=== PATIENT | female | born 1960 | race Caucasian/White ===

== ENCOUNTER → 2017-12-04 08:27 | Outpatient (CLI) | payer OTHER, SELFPAY ==
--- NOTE | 2017-12-04 | DI.MRI.S_ITS ---
PROCEDURE: MR SHOULDER RT WO CON INDICATIONS: CALCIFIC TENDONITIS OF RIGHT SHOULDER TECHNIQUE: Noncontrast oblique coronal T2 fast spin echo with fat saturation, oblique sagittal T1 spin echo and T2 fast spin echo with fat saturation, axial T1 spin echo and T2 fast spin echo with fat saturation through the shoulder. COMPARISON: [facility] [place], CR, XR SHOULDER 2+ VIEWS BILATERAL, 01/13/2017, 13:22. FINDINGS: Image quality: Excellent. Rotator cuff: As seen on the comparison radiograph dated 01/13/17, there is calcific tendinitis involving the junction of the supraspinatus and infraspinatus tendons. Additionally, there may be a low signal focus of hydroxyapatite deposition within the adjacent humeral head, for example image 5 series 10. There is associated supraspinatus and infraspinatus tendinopathy. There is also partial-thickness bursal surface fraying. The teres minor tendon appears intact. The subscapularis tendon appears intact. No atrophy of the rotator cuff musculature Bones and bursae: No bone marrow contusions or fractures. There is reactive marrow edema to the hydroxyapatite deposition described above. Moderate acromioclavicular joint degeneration. The acromion demonstrates conventional anatomy, without an os acromiale. Mild subacromial/subdeltoid bursal fluid is present. Capsule and soft tissues: In the absence of intra-articular contrast, the labrum and glenohumeral ligaments appear intact. The long head of the biceps tendon demonstrates normal location and morphology. The rotator interval appears normal, without fibrosis. The coracohumeral ligament is normal in thickness. IMPRESSION: Calcific tendinitis involving the junction of the supraspinatus and infraspinatus tendons of the foot and, with associated tendinopathy and low-grade bursal surface fraying. Adjacent mild subacromial/subdeltoid bursitis. Additional low signal focus within the adjacent humeral head suggestive of intraosseous hydroxyapatite deposition. There is marked adjacent marrow edema presumably reactive. Dictated by: Sylvester Washington M.D. on 12/04/2017 at 11:11 Approved by: Sylvester Washington M.D. on 12/04/2017 at 11:40
== END ==
PROVIDERS: Visit Provider Orthopaedic Surgery
DX: M75.31 Calcific tendinitis of right shoulder (principal); M75.51 Bursitis of right shoulder
CPT/HCPCS: 73221

== ENCOUNTER → 2017-12-14 13:32 | Outpatient (CLI) | payer OTHER, SELFPAY ==
--- NOTE | 2017-12-14 13:37 | DI.CT.S_ITS ---
PROCEDURE: CT UE RT WO CON INDICATIONS: TENDONITIS OF RIGHT SHOULDER TECHNIQUE: Noncontrast 1-1.5 mm thick sections acquired from the acromioclavicular joint to the inferior scapula, with coronal and sagittal reformatting. COMPARISON: [facility] [place], CR, XR SHOULDER 2+ VIEWS BILATERAL, 01/13/2017, 13:22. [facility], MR, MR SHOULDER RT WO CON, 12/04/2017, 9:02. FINDINGS: Image quality: Diagnostic. Bones: There is no acute fracture, dislocation, or suspicious osseous lesion identified involving the osseous structures of the right shoulder. There are at least moderate degenerative changes of the glenohumeral joint and moderate degenerative changes of the acromioclavicular joint. Focal area of sclerosis involving the humeral head is identified, correlating with the area of marrow edema on the MRI, which probably represents a portion of the hydroxyapatite deposition extending into cystic change of the bone at that location (image 111, series 4). This is located at the junction of the supraspinatus and infraspinatus tendons along the greater tuberosity of the humeral head. The remainder of the imaged osseous structures of the included chest are age appropriate and otherwise unremarkable. 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 The rotator cuff is not well evaluated on this examination and is much better evaluated on the MRI from 12/04/17. No significant muscle atrophy is evident. No soft tissue masses or fluid collections are evident overlying the right shoulder. No axillary lymphadenopathy is evident. The included portions of the chest are essentially unremarkable. Minimal bullous change may be present within the right lung versus a pulmonary cyst. IMPRESSION: 1. Calcific tendinitis of the rotator cuff with intraosseous extension at the junction between the supraspinatus and infraspinatus tendons involving the greater tuberosity of the humeral head. 2. Moderate degenerative changes of the glenohumeral and acromioclavicular joints. No fractures. Dictated by: Nicholas Torres M.D. on 12/14/2017 at 13:40 Approved by: Nicholas Torres M.D. on 12/14/2017 at 13:50
== END ==
PROVIDERS: PCP Family Medicine; Visit Provider Orthopaedic Surgery
DX: M75.31 Calcific tendinitis of right shoulder (principal); M19.011 Primary osteoarthritis, right shoulder
CPT/HCPCS: 73200

== ENCOUNTER 2018-01-18 12:11 | Day surgery (SDC) | payer OTHER, SELFPAY ==
[2018-01-08 09:40] VITALS: BMI 24.7
[2018-01-18] VITALS (10 sets, daily range): BP systolic 107–137; BP diastolic 69–87; PULSE 62–94; RESP 12–18; TEMP 36.3–36.8; O2SAT 94–98; BMI 24.7
[2018-01-18] MEDS: LACTATED RINGERS 1,000 ML 42 ML IV (12:48)
--- NOTE | 2018-01-18 13:01 | PM.PREOP ---
Pre-operative Note Interval Note Pre-op Check: Yes History & Physical Reviewed by Physician and Yes Exam Performed Changes: No
--- NOTE | 2018-01-18 13:27 | SUR.OPER ---
Beach chair on padded OR bed. Head on gel donut secured with tape over gauze. Non-operative arm secured <90 degrees abduction on padded arm board. Pillow under knees. Safety belt at thigh. Cloth tape over blanket over lower legs.
[2018-01-18] MEDS: CEFAZOLIN VIAL 1 GM in SODIUM CHLORIDE 0.9% 100 ML 200 ML IV (13:34)
[2018-01-18] MEDS: BUPIVACAINE 0.5% W/ EPI (PF) VIAL 30 ML INJ (14:22)
--- NOTE | 2018-01-18 14:59 | PM.PROC.1 ---
Procedures Date/Time Date of procedure: 01/18/18 General Procedure description:
--- NOTE | 2018-01-18 15:02 | PM.PROC.1 ---
Procedures Date/Time Date of procedure: 01/18/18 Time of procedure: 13:05 General Procedure description: Ultrasound guided interscalene brachial plexus nerve block for post op pain control after Right shoulder surgery by Dr. Bell. Risks and benefits of procedure discussed with patient. ASA monitoring applied to patient. O2 given via nasal cannula. 2 mg Versed and 50 mcg fentanyl given for procedural sedation. Skin site was prepped with chlorhexidine and allowed to fully dry. Sterile gloves, mask, hat and probe cover were used to maintain sterility. 2% lidocaine and 30ga needle was used to make a small skin wheal at needle insertion site. Under ultrasound guidance, a 21ga 50mm [place] needle was directed into the interscalene groove (middle/anterior scalenes) near the brachial plexus. Patient reported no parasthesias. After negative aspiration, 15 mL 0.5% ropivicaine and 10mg dexamethasone were injected around brachial plexus. Patient tolerated procedure well.
--- NOTE | 2018-01-18 15:08 | P.OP_ITS ---
Operative Date/Time/Diagnoses Date of procedure: 01/18/18 Time of procedure: 14:40 Pre-op diagnosis: Right shoulder calcific tendinitis Post-op diagnosis: same Procedure & Clinicians Procedure: Right shoulder open debridement of calcific deposit and rotator cuff repair Same procedure as scheduled: Yes Indications: The patient is a 57-year-old woman who has had chronic right shoulder pain that has not responded to nonoperative measures. An MRI and CT scan have shown both a calcific deposit in the rotator cuff and 1 in the greater tuberosity underneath it. She has agreed to open debridement and rotator cuff repair after discussion the risks benefits and alternatives. Risks discussed included but were not limited to: Incomplete excision of calcium, incomplete resolution of pain, incomplete return of function, stiffness, nerve damage, infection, deep venous thrombosis, pulmonary embolism, stroke, myocardial infarction and . Surgeon: Rick Bell Global Engineering Manager: Patrizia Banda Click Yes if Unassisted: No Anesthesia Type: General, Peripheral nerve block and Local Operative Notes Findings: Calcific deposit in the infraspinatus. There was no obvious opening into a cyst beneath it. Closure Type: primary Specimen(s): none sent Implants & Drains: One Mitek Healix BR 5.5 mm anchor. Applied: implant(s) Estimated Blood Loss (mL): 25 Blood products transfused: none Procedure in detail: The patient was seen in the preoperative area where she identified the right shoulder as the operative site and this was marked with my initials. She received preoperative antibiotics within appropriate 1st generation cephalosporin and underwent an interscalene block. She was then taken to the operating room and placed on the operating room table in supine position where she underwent a general anesthetic. She was then repositioned in a beach chair position on the standard operating room table. A towel bump was placed to protract her scapula. The right upper extremity was prepared from the base of the neck to the fingers with ChloraPrep in the usual fashion drape through sterile drapes. An approximately 6 cm incision was created just off the lateral edge of the acromion in line with Fracisco's lines. Subcutaneous flaps were raised. The deltoid was then split in line with its fibers. This was carried onto the acromion and the deltoid was elevated from the acromion with electrocautery. The bursa underneath was excised. There was no obvious palpable calcific deposit nor was there an obvious area of pointing of calcium. I then carefully inspected the MRI and made an incision in the rotator cuff in line with its direction of pull overlying the anticipated position of the calcific deposit. This incision appeared to bisect the calcific deposit which was excised with a scalpel and rongeur. We inspected the underlying greater tuberosity. There was no obvious entrance to assist. I created a puncture hole with the awl for the anchor and curetted with the small curette through the puncture hole. This was then tapped and the anchor placed. The sutures from the anchor were placed through the rotator cuff incision 1 anterior and 1 posterior to the cut. The 2 sutures were then tied satisfactorily repairing the defect in the rotator cuff. The wound was then irrigated. The deltoid was closed with running 0 Vicryl. The subcutaneous layer was closed with interrupted 3 O Vicryl. The skin was closed with a running 4 0 Monocryl and Steri-Strips. Total of 12 mL of 0.5% Marcaine with epinephrine was used for both hemostasis and pain control. 2 mL was used before the procedure and 10 was injected during closure. Dressings sterile 4x4s, an ABD and an adhesive dressing were applied followed by a sling and the patient was transported to the recovery room in good condition having tolerated the procedure well. Complications: none Condition: stable Disposition: PACU Plan for aftercare: Due to the small size rotator cuff tear that was created to debride the rotator cuff, the patient will be maintained on a small size rotator cuff repair protocol with 6 weeks of passive range of motion in the sling.
== END 2018-01-18 16:25 | disposition home or self-care (01) ==
PROVIDERS: PCP Family Medicine; Visit Provider Orthopaedic Surgery
PROC: (CPT 23000; principal; 2018-01-18 14:45)
DX: M75.31 Calcific tendinitis of right shoulder (principal); G89.18 Other acute postprocedural pain
CPT/HCPCS: 23000; 64415; 64450; J0690; J1100; J1885; J2250; J2405; J2704; J2795; J3010